=== PATIENT | male | born 1965 | race Caucasian/White ===

== ENCOUNTER → 2017-12-01 07:05 | Outpatient (CLI) | payer MEDICAID, SELFPAY ==
--- NOTE | 2017-12-01 07:10 | NM_ITS ---
History and Indications: Hypertension, chest pain and shortness of breath Procedure: Patient received a 0.4 mg of Lexiscan, resting heart rate was 58 bpm resting blood pressure 142/82, with Lexiscan maximum heart rate achieved was 83 bpm which is less than 85% of the maximum predicted heart rate and a blood pressure was 130/84With Lexiscan patient complained of shortness of breath. Electrocardiogram: Resting electrocardiogram showed sinus rhythm, with Lexiscan there is less than 1.[address] segment depression noted from the baseline EKG. The EKG portion of the Lexiscan Myoview is nondiagnostic. Cardiac stress and resting SPECT images: Cardiac stress and resting SPECT images were obtained using technetium 99 Myoview 31.3 mCi at stress and the 10.9 mCi at rest gated SPECT further analysis of segmental wall motion and calculation of the ejection fraction also done. Cardiac stress and rest SPECT images show uniform myocardial activity without any segmental perfusion abnormality, computer derived ejection fraction of 55% with no obvious regional wall motion abnormality, right ventricle is normal size and contractility. Conclusion: 1. The EKG portion of the Lexiscan Myoview is nondiagnostic. 2. No obvious scintigraphic evidence of reversible ischemia seen, computer derived ejection fraction is 55% with no obvious regional wall motion abnormality, right ventricle is normal size and contractility. 3. Normal Lexiscan Myoview study.
--- NOTE | 2017-12-01 07:10 | CA_ITS ---
PROCEDURE: 2-D M-mode and color Doppler study INDICATIONS FOR THE TEST: Chest painX COPD Heart Murmur Tobacco Smoking Palpitations FatigueX Syncope Edema HypertensionXDiabetes Mellitus Rheumatic Fever SOB DOEXObesity HyperlipidemiaX Family History HD Additional History CAD,KEVIN PATIENT INFORMATION HEIGHT:68 WEIGHT:211 GENDER: Male B/P:126/80 2-D/M-MODE INTERPRETATION: 2-D MEASUREMENTS OBSERVED VALUES IN CMS Right Ventricular Dimension (RVDd) 3.2 Interventricular Septum (Thickness)(IVsd) 1.2 Left Ventricular Internal Dimensions(LVIDd) 4.7 Left Ventricular Posterior Wall (Thickness)(LVPWd) .9 Aortic Root 3.0 Aortic Cusp Separation 2.0 Left Atrial Dimensions (LAD) 3.4 2D 1. Left atrium is qualitatively mildly enlarged, left ventricle is normal size, there is no concentric left ventricular hypertrophy, visually estimated ejection fraction of 55% with no obvious regional wall motion abnormality. 2. Right atrium and right ventricle are mildly enlarged with normal contractility. 3. The aortic valve is minimally thickened and fibrosed. 4. The mitral valve appears to be mildly myxomatous with mild prolapse 5. The tricuspid valve is structurally normal. 6. The pulmonic valve is poorly visualized 7. No significant pericardial effusion noted. DOPPLER INTERROGATION: Doppler interrogation of the aortic, mitral and tricuspid valvular presence of mild mitral and tricuspid regurgitation, tricuspid and jet velocity is insufficient for calculation of the right ventricular systolic pressure, grade 1 diastolic dysfunction seen with tissue Doppler evidence of raised left atrial pressure. CONCLUSION: 1. Mildly enlarged left atrium, normal left ventricular size, preserved left ventricular systolic function visually estimated ejection fraction 55% with no obvious regional wall motion abnormality, grade 1 diastolic dysfunction seen with tissue Doppler evidence of raised left atrial pressure. 2. Mildly enlarged right ventricle with normal contractility. 3. Mild mitral and tricuspid regurgitation. 4. No significant pericardial effusion noted.
--- NOTE | 2017-12-01 09:05 | HMH.ITSHM ---
losartan carvedilol water pill
== END ==
PROVIDERS: PCP Emergency Medicine; Visit Provider Internal Medicine
DX: I20.9 Angina pectoris, unspecified (principal); R06.09 Other forms of dyspnea
CPT/HCPCS: 78452; 93017; 93306; A9502; J2785

== ENCOUNTER → 2018-01-15 10:36 | Outpatient (CLI) | payer MEDICAID, SELFPAY ==
[2018-01-15 12:25] LABS: Alanine Aminotransferase 34 U/L (12-78); Albumin Level 3.7 gm/dL (3.4-5.0); Alkaline Phosphatase 88 U/L (46-116); Anion Gap 8.8 mEq/L (5-15); Aspartate Amino Transferase 22 U/L (15-37); Bilirubin,Direct 0.1 mg/dL (0.0-0.2); Bilirubin,Indirect 0.5 mg/dL (0.0-0.9); Bilirubin,Total 0.6 mg/dL (0.2-1.0); Blood Urea Nitrogen 14 mg/dL (7-18); Calcium 8.7 mg/dL (8.5-10.1); Carbon Dioxide 32 mmol/L (21.0-32.0); Chloride 107 mmol/L (98-107); Chol/HDL Ratio 3.4 (1-3.5); Cholesterol 110 mg/dL (140-200); Creatinine,Serum 1.03 mg/dL (0.70-1.30); Estimated Glomerular Filt Rate 76 ml/min (>60); GFR (African American) 91 ML/MIN (>60); Glucose 114 mg/dL (74-106); HDL Cholesterol 32 mg/dL (27-67); LDL Cholesterol 62 mg/dL (0-130); Potassium 4.8 mmoL/L (3.5-5.1); Sodium 143 mmol/L (136-145); Triglycerides 79 mg/dL (30-200); VLDL Cholesterol 16 mg/dL (0-40)
== END ==
PROVIDERS: PCP Emergency Medicine; Visit Provider Urology
DX: I25.118 Atherosclerotic heart disease of native coronary artery with other forms of angina pectoris (principal); Z95.5 Presence of coronary angioplasty implant and graft
CPT/HCPCS: 36415; 80048; 80061; 80076

== ENCOUNTER → 2018-10-10 07:22 | Outpatient (CLI) | payer MEDICAID, SELFPAY ==
[2018-10-10 13:58] LABS: Basophils # 0.1 K/mm3 (0-0.2); Basophils % 1.2 % (0.1-2.0); Eosinophils # 0.3 K/mm3 (0.0-0.4); Eosinophils % 3.3 % (0.1-12.0); Hematocrit 50.1 % (42.0-52.0); Hemoglobin 17.3 g/dL (14.1-18.0); Lymphocytes # 2.3 K/mm3 (0.7-4.5); Lymphocytes % 30.2 % (10-50); Mean Corpuscular HGB Conc 34.6 g/dL (31.8-35.4); Mean Corpuscular Hemoglobin 31.2 pg (27.0-31.2); Mean Platelet Volume 9.7 fl (7.4-10.4); Monocytes # 0.4 K/mm3 (0.1-1.0); Monocytes % 5.9 % (1.7-9.3); Neutrophils # 4.5 K/mm3 (1.8-7.8); Neutrophils % 59.4 % (37.0-80.0); Platelet Count 181 K/mm3 (142-424); Red Blood Count 5.56 M/mm3 (4.60-6.20); Red Cell Distribution Width 13.9 % (11.5-17.5); White Blood Count 7.5 K/mm3 (4.8-10.8)
[2018-10-10 14:58] LABS: Alanine Aminotransferase 35 U/L (12-78); Albumin Level 3.7 gm/dL (3.4-5.0); Alkaline Phosphatase 96 U/L (46-116); Anion Gap 11.8 mEq/L (5-15); Aspartate Amino Transferase 19 U/L (15-37); Bilirubin,Direct 0.2 mg/dL (0.0-0.2); Bilirubin,Indirect 0.3 mg/dL (0.0-0.9); Bilirubin,Total 0.5 mg/dL (0.2-1.0); Blood Urea Nitrogen 20 mg/dL (7-18); Calcium 9.2 mg/dL (8.5-10.1); Carbon Dioxide 29 mmol/L (21.0-32.0); Chloride 106 mmol/L (98-107); Chol/HDL Ratio 3.2 (1-3.5); Cholesterol 87 mg/dL (140-200); Creatinine,Serum 1.09 mg/dL (0.70-1.30); Estimated Glomerular Filt Rate 70 ml/min (>60); Free T4 (Free Thyroxine) 0.89 ng/dl (0.76-1.46); GFR (African American) 85 ML/MIN (>60); Glucose 141 mg/dL (74-106); HDL Cholesterol 27 mg/dL (27-67); LDL Cholesterol 45 mg/dL (0-130); Potassium 3.8 mmoL/L (3.5-5.1); Sodium 143 mmol/L (136-145); Total Protein,Serum 6.9 gm/dL (6.4-8.2); Triglycerides 77 mg/dL (30-200); VLDL Cholesterol 15 mg/dL (0-40)
== END ==
PROVIDERS: PCP Emergency Medicine; Visit Provider Nurse Practitioner Family
DX: R06.09 Other forms of dyspnea (principal); I11.9 Hypertensive heart disease without heart failure; I25.10 Atherosclerotic heart disease of native coronary artery without angina pectoris; I51.89 Other ill-defined heart diseases; R53.83 Other fatigue; G47.33 Obstructive sleep apnea (adult) (pediatric); Z95.5 Presence of coronary angioplasty implant and graft
CPT/HCPCS: 36415; 80048; 80061; 80076; 84439; 84443; 85025

== ENCOUNTER → 2019-09-16 08:13 | Outpatient (CLI) | payer OTHER, SELFPAY ==
[2019-09-16 14:02] LABS: Alanine Aminotransferase 31 U/L (12-78); Albumin Level 4.2 g/dl (3.5-5.0); Alkaline Phosphatase 98 U/L (38-126); Aspartate Amino Transferase 29 U/L (17-59); Bilirubin,Indirect 0.5 mg/dL (0.0-0.9); Bilirubin,Total 0.5 mg/dl (0.2-1.3); Bilirubin,Unconjugated 0.6 mg/dL (0.0-1.1); Total Protein,Serum 7.1 g/dl (6.3-8.2)
[2019-09-16 14:06] LABS: NT Pro Brain Natriuretic Pep. 30.9 pg/mL (0-125)
== END ==
PROVIDERS: PCP Nurse Practitioner; Visit Provider Internal Medicine Cardiovascular Disease
DX: I25.10 Atherosclerotic heart disease of native coronary artery without angina pectoris (principal); I50.30 Unspecified diastolic (congestive) heart failure; R06.00 Dyspnea, unspecified; R59.0 Localized enlarged lymph nodes; R60.9 Edema, unspecified; E78.5 Hyperlipidemia, unspecified; Z95.5 Presence of coronary angioplasty implant and graft
CPT/HCPCS: 36415; 80076; 83880

== ENCOUNTER → 2019-10-07 07:45 | Outpatient (CLI) | payer OTHER, SELFPAY ==
--- NOTE | 2019-10-07 07:45 | US_ITS ---
PROCEDURE: US ABDOMEN COMPLETE CLINICAL INDICATION: positive bowel sounds Pain with bloating COMPARISON: ABD US ABD(COMPLETE-MULTI ORGANS from 09/16/2016 FINDINGS: PANCREAS: Unremarkable. No obvious mass or abnormal fluid collection. No ductal dilatation LIVER: No focal liver lesions demonstrated. Homogeneous echogenicity. No intrahepatic biliary ductal dilatation evident. There is appropriate direction of blood flow within a non dilated portal vein RIGHT KIDNEY: Unremarkable. Normal size and echogenicity. No hydronephrosis LEFT KIDNEY: Unremarkable. Normal size and echogenicity. No hydronephrosis GALLBLADDER: There has been a prior cholecystectomy. Common bile duct is 7 mm slightly prominent but may be due to the previous cholecystectomy. AORTA: No evidence of aneurysmal dilatation. SPLEEN: Unremarkable. Normal size and echogenicity ASCITES: None demonstrated. IMPRESSION: Prior cholecystectomy otherwise negative Dictated by: Lupillo Lujan MD 10/07/2019 14:15 Electronically signed by Lupillo Lujan MD in [place] 10/07/2019 14:15
--- NOTE | 2019-10-07 07:45 | XR_ITS ---
PROCEDURE: XR CHEST 2V CLINICAL HISTORY: sob Shortness of breath COMPARISON: CXR1 CHEST-PORTABLE from 01/16/2017 CXR CHEST(2 VIEWS-NOT PORTABLE) from 06/29/2017 CXR1VP XR chest portable from 11/13/2017 FINDINGS: The cardiomediastinal silhouette and pulmonary vascularity are within normal limits. Minimal linear density noted in the left midlung which may be due to some mild fibrotic change. The remaining lungs are clear. No acute bony abnormalities. IMPRESSION: No change with no acute finding Dictated by: Lupillo Lujan MD 10/07/2019 10:02 Electronically signed by Lupillo Lujan MD in [place] 10/07/2019 10:02
== END ==
PROVIDERS: PCP Nurse Practitioner; Visit Provider Internal Medicine Cardiovascular Disease
DX: R06.00 Dyspnea, unspecified (principal); E78.5 Hyperlipidemia, unspecified; I11.9 Hypertensive heart disease without heart failure; I25.10 Atherosclerotic heart disease of native coronary artery without angina pectoris; R59.0 Localized enlarged lymph nodes; R60.9 Edema, unspecified; Z95.5 Presence of coronary angioplasty implant and graft
CPT/HCPCS: 71046; 76700; 93306

== ENCOUNTER → 2020-12-08 08:33 | Outpatient (CLI) | payer OTHER, SELFPAY ==
[2020-12-08 14:27] LABS: Alanine Aminotransferase 33 U/L (12-78); Albumin Level 4.2 g/dl (3.5-5.0); Alkaline Phosphatase 96 U/L (38-126); Aspartate Amino Transferase 32 U/L (17-59); Bilirubin,Direct 0.5 mg/dl (0.0-0.4); Bilirubin,Indirect 0.2 mg/dL (0.0-0.9); Bilirubin,Total 0.7 mg/dl (0.2-1.3); Bilirubin,Unconjugated 0.2 mg/dL (0.0-1.1); Chol/HDL Ratio 4.1 (1-3.5); Cholesterol 103 mg/dl (140-200); HDL Cholesterol 25 mg/dl (40-60); Total Protein,Serum 6.7 g/dl (6.3-8.2); Triglycerides 151 mg/dl (30-150); VLDL Cholesterol 30 mg/dL (0-40)
[2020-12-08 14:40] LABS: Direct LDL Cholesterol 45.03 mg/dL (100-129)
== END ==
PROVIDERS: Visit Provider Internal Medicine Cardiovascular Disease
DX: R06.00 Dyspnea, unspecified (principal); I25.10 Atherosclerotic heart disease of native coronary artery without angina pectoris; I11.9 Hypertensive heart disease without heart failure; E78.5 Hyperlipidemia, unspecified; R59.0 Localized enlarged lymph nodes; R60.9 Edema, unspecified; Z95.5 Presence of coronary angioplasty implant and graft
CPT/HCPCS: 36415; 80061; 80076

== ENCOUNTER → 2022-06-03 09:52 | Outpatient (CLI) | payer OTHER, SELFPAY ==
[2022-06-03 10:37] LABS: Alanine Aminotransferase 33 U/L (12-78); Alkaline Phosphatase 94 U/L (38-126); Aspartate Amino Transferase 36 U/L (17-59); Bilirubin,Direct 0.1 mg/dl (0.0-0.4); Bilirubin,Indirect 0.7 mg/dL (0.0-0.9); Bilirubin,Total 0.8 mg/dl (0.2-1.3); Bilirubin,Unconjugated 0.7 mg/dL (0.0-1.1)
[2022-06-03 10:38] LABS: Albumin Level 4.3 g/dl (3.5-5.0); Chol/HDL Ratio 4.6 (1-3.5); Cholesterol 120 mg/dl (140-200); HDL Cholesterol 26 mg/dl (40-60); Total Protein,Serum 6.8 g/dl (6.3-8.2); Triglycerides 168 mg/dl (30-150); VLDL Cholesterol 34 mg/dL (0-40)
[2022-06-03 10:49] LABS: Direct LDL Cholesterol 50.29 mg/dL (100-129)
== END ==
PROVIDERS: PCP Nurse Practitioner; Visit Provider Internal Medicine Cardiovascular Disease
DX: I25.10 Atherosclerotic heart disease of native coronary artery without angina pectoris (principal); I11.9 Hypertensive heart disease without heart failure
CPT/HCPCS: 36415; 80061; 80076

== ENCOUNTER → 2022-07-08 11:43 | Outpatient (CLI) | payer OTHER, SELFPAY ==
--- NOTE | 2022-07-08 11:53 | XR_ITS ---
FINAL REPORT TECHNIQUE: 2 views CLINICAL HISTORY: .PAIN FINDINGS: THORACIC SPINE Two views were obtained. There is no acute fracture. There is no malalignment. There are mild degenerative changes with osteophytes. There is no soft tissue abnormality. IMPRESSION: No acute bony abnormality. Reviewed, Interpreted and Dictated by Abdi Neville III, MD Transcribed by Gina Sweet Authenticated and [facility]
--- NOTE | 2022-07-08 11:53 | XR_ITS ---
FINAL REPORT CLINICAL HISTORY: .NECK PAIN FINDINGS: CERVICAL SPINE Three views were obtained. There is no acute fracture. There is no malalignment. There are mild and moderate degenerative changes with osteophytes, greatest at C6-7. There is a calcification posterior to C4 and C5. IMPRESSION: Mild and moderate degenerative changes with osteophytes, greatest at C6-7. Reviewed, Interpreted and Dictated by Abdi Neville III, MD Transcribed by Gina Sweet Authenticated and [facility]
== END ==
PROVIDERS: PCP Nurse Practitioner; Visit Provider Nurse Practitioner
DX: M54.2 Cervicalgia (principal); M54.50 Low back pain, unspecified
CPT/HCPCS: 72040; 72070

== ENCOUNTER 2022-08-10 16:00 | Outpatient (RCR) | payer OTHER, SELFPAY | END 2022-09-20 13:08 | disposition home or self-care (01) | LOC: PT 16:00 | PROVIDERS: PCP Nurse Practitioner; Visit Provider Nurse Practitioner | DX: M54.2 Cervicalgia (principal) | CPT/HCPCS: 97010; 97012; 97014; 97110; 97140; 97163; G0283 ==

== ENCOUNTER → 2022-12-15 09:24 | Outpatient (CLI) | payer OTHER, SELFPAY ==
[2022-12-15 09:50] LABS: Basophils # 0.1 K/mm3 (0-0.2); Basophils % 1.1 % (0.1-2.0); Eosinophils # 0.3 K/mm3 (0.0-0.4); Eosinophils % 4.7 % (0.1-12.0); Hematocrit 50.7 % (42.0-52.0); Hemoglobin 17.2 g/dL (14.1-18.0); Lymphocytes # 2.1 K/mm3 (0.7-4.5); Mean Corpuscular HGB Conc 33.8 g/dL (31.8-35.4); Mean Corpuscular Hemoglobin 31.4 pg (27.0-31.2); Mean Corpuscular Volume 92.7 fl (80-94); Mean Platelet Volume 9.2 fl (7.4-10.4); Monocytes # 0.4 K/mm3 (0.1-1.0); Monocytes % 6.2 % (1.7-9.3); Neutrophils # 3.9 K/mm3 (1.8-7.8); Neutrophils % 57.1 % (37.0-80.0); Platelet Count 143 K/mm3 (142-424); Red Blood Count 5.47 M/mm3 (4.60-6.20); Red Cell Distribution Width 14.1 % (11.5-17.5); White Blood Count 6.8 K/mm3 (4.8-10.8)
[2022-12-15 10:08] LABS: Alanine Aminotransferase 40 U/L (12-78); Albumin Level 4.2 g/dl (3.5-5.0); Alkaline Phosphatase 98 U/L (38-126); Anion Gap 17.4 mEq/L (5-15); Aspartate Amino Transferase 37 U/L (17-59); Bilirubin,Indirect 0.9 mg/dL (0.0-0.9); Bilirubin,Total 0.9 mg/dl (0.2-1.3); Blood Urea Nitrogen 19 mg/dl (9-20); Calcium 9.2 mg/dl (8.4-10.2); Carbon Dioxide 29 mmol/L (22.0-30.0); Chloride 99 mmol/L (98-107); Chol/HDL Ratio 3.8 (1-3.5); Cholesterol 99 mg/dl (140-200); Estimated Glomerular Filt Rate 77 ml/min (>60); GFR (African American) 93 ML/MIN (>60); Glucose 141 mg/dl (74-100); HDL Cholesterol 26 mg/dl (40-60); Magnesium 1.9 mg/dl (1.6-2.3); Potassium 4.4 mmoL/L (3.5-5.1); Sodium 141 mmol/L (136-145); Total Protein,Serum 6.8 g/dl (6.3-8.2); Triglycerides 189 mg/dl (30-150); VLDL Cholesterol 38 mg/dL (0-40)
[2022-12-15 10:18] LABS: NT Pro Brain Natriuretic Pep. 45.9 pg/mL (0-125)
[2022-12-15 10:19] LABS: Direct LDL Cholesterol 44.27 mg/dL (100-129)
[2022-12-15 10:24] LABS: Free T4 (Free Thyroxine) 0.76 ng/dl (0.78-2.19)
[2022-12-15 10:39] LABS: Thyroid Stimulating Hormone 2.03 uIU/mL (0.465-4.68)
== END ==
PROVIDERS: PCP Nurse Practitioner; Visit Provider Physician Assistant
DX: I25.10 Atherosclerotic heart disease of native coronary artery without angina pectoris (principal); I11.9 Hypertensive heart disease without heart failure; E78.2 Mixed hyperlipidemia; G47.33 Obstructive sleep apnea (adult) (pediatric); Z95.5 Presence of coronary angioplasty implant and graft
CPT/HCPCS: 36415; 80048; 80061; 80076; 83735; 83880; 84439; 84443; 85025

== ENCOUNTER 2023-07-28 14:49 | Outpatient (CLI) | payer OTHER, SELFPAY ==
--- NOTE | 2023-07-28 14:50 | CA_ITS ---
APPROVED REPORT EXAM: Comprehensive 2D, Doppler, and color-flow Echocardiogram Fire Alarm Technician: Rosita Jernigan, RCS, RVS Ht: 5 ft 6 in Wt: 224lbs BSA: 2.10 BP: 138/74 mmHg Indications: CAD, Diastolic dysfunction, HTN ,SOA, MEDEL, KEVIN, HLD 2D Dimensions Aortic Root 3.30 cm LA Volume 57.30 mL Left Atrium 2.91 cm LA Volume Index 27.30 mL/m2 (M/F) 16-34 RVID Base (AP4) 2.68 cm (M/F) 2.5-4.1 EF AP4 49.90 % LVOT 1.85 cm (M/F) 1.5-2.5 GL Strain -17.4 % M-Mode Dimensions RVDd 2.58 cm (0.9-2.6) LVDd 4.38 cm (3.5-5.7) Ao Diam 3.54 cm (2.0-3.7) LVDs 2.91 cm (3.5-5.7) IVSd 1.29 cm (0.6-1.1) PWd 1.08 cm (0.6-1.1) EF (Teich) 62.60% EPSs 0.32 cm FS 33.60% EDV (Teich) 86.80 mL TAPSE 2.62 (<1.7) ESV (Teich) 32.50 mL LV Diastology E Decel Time 358 (160-240 msec) E/A Ratio 0.96 MED E' 6.6 (>= 7 cm/sec) MED A' 10.40 cm/s E'/MED E' Ratio 10.00 (<= 14) LAT E' 5.6 (>= 10 cm/sec) LAT A' 9.20 cm/s E/LAT E' Ratio 11.79 (<= 14) Aortic Valve LVOT Max 88.0 (70-110 cm/s) TASIA Index 0.88 cm2/m2 LVOT VTI 14.54 cm AoV Peak Valentin. 117.0 (50-130 cm/s) AO Mean GR. 2.80 (<5 mmHg) AO VTI 21.2 (18-25 cm) TASIA (VTI) 1.85 (2.5-4.5 cm2) Mitral Valve MV E Max Valentin. 66.0 (40-130 cm/s) MV A Velocity 69.0 (40-130 cm/s) E/A Ratio 0.96 MV Decel. Time 358 (160-240 ms) MV Mean Gr. 0.90 (<2mmHg) Tricuspid Valve TR P. Velocity 165.00 cm/s RAP Estimate 10.00 mmHg RVSP 20.90 mmHg Left Ventricle The left ventricle is normal size. The left ventricular systolic function is normal. The left ventricular ejection fraction is within the normal range. There is normal left ventricular wall thickness. There is normal LV segmental wall motion. The left ventricular diastolic function is normal. LVEF is 60%. Right Ventricle The right ventricle is normal size. The right ventricular systolic function is normal. Atria The left atrium size is normal. The right atrium size is normal. There is no Doppler evidence of interatrial shunt. Aortic Valve The aortic valve is normal in structure. There is no aortic valvular stenosis. No aortic regurgitation is present. Mitral Valve The mitral valve is normal in structure. No evidence of mitral valve stenosis. There is no mitral valve regurgitation noted. Tricuspid Valve The tricuspid valve leaflets are thin and pliable. Trace tricuspid regurgitation. There is insufficient TR jet to estimate RVSP. Pulmonic Valve The pulmonary valve is normal in structure. Trace pulmonic regurgitation. Great Vessels The aortic root is normal in size. The ascending aorta is normal in size. IVC is normal in size and collapses >50% with inspiration. Pericardium There is no pericardial effusion. Other Information Study Quality: Adequate Conclusion Normal biventricular systolic function. No significant valvular stenosis or regurgitation. Electronically signed by : Eleonora Mckeon MD 07/30/2023 17:15:13
== END 2023-07-28 23:59 ==
LOC: RT 14:50
PROVIDERS: PCP Nurse Practitioner; Visit Provider Internal Medicine
DX: R06.02 Shortness of breath (principal); I11.9 Hypertensive heart disease without heart failure; I25.10 Atherosclerotic heart disease of native coronary artery without angina pectoris; Z95.5 Presence of coronary angioplasty implant and graft
CPT/HCPCS: 93306

== ENCOUNTER 2023-08-04 08:46 | Outpatient (CLI) | payer OTHER, SELFPAY ==
[2023-08-04] VITALS (7 sets, daily range): BP systolic 117–133; BP diastolic 70–91; PULSE 58–90; RESP 16–18; TEMP 36.6; O2SAT 94–100; BMI 35.5
[2023-08-04 09:23] LABS: POC Glucose,Bedside 153 (70-110)
[2023-08-04 09:36] LABS: Chloride 106 mmol/L (98-107); Sodium 140 mmol/L (136-145)
[2023-08-04 09:37] LABS: Potassium 3.8 mmoL/L (3.5-5.1)
[2023-08-04 09:40] LABS: Anion Gap 9.8 mEq/L (5-15); Blood Urea Nitrogen 21 mg/dl (9-20); Calcium 8.8 mg/dl (8.4-10.2); Carbon Dioxide 28 mmol/L (22.0-30.0); Creatinine Clearance Estimated 140 mL/min (50-200); Estimated Glomerular Filt Rate 99 ml/min (>60); GFR (African American) 120 ML/MIN (>60); Glucose 152 mg/dl (74-100)
[2023-08-04] MEDS: IVABRADINE HCL 7.5MG TABLET 15 MG PO (10:04)
[2023-08-04] MEDS: METOPROLOL TARTRATE 25MG TABLET 75 MG (10:04)
[2023-08-04] MEDS: METOPROLOL TARTRATE 5MG/5ML VIAL *IVABRADINE+METOPROLOL REGIMINE 5 MG IV ×2 (11:05→11:20)
[2023-08-04] MEDS: METOPROLOL TARTRATE 50MG TABLET *IVABRADINE+METOPROLOL REGIMINE 75 MG PO (11:08)
[2023-08-04] MEDS: 0.9 % SODIUM CHLORIDE 50 ML VIAL IV (12:35)
[2023-08-04] MEDS: IOPAMIDOL-370 (76%);100ML BOTTLE 85 ML IV (12:35)
[2023-08-04] MEDS: SODIUM CHLORIDE 0.9% 10ML SYR (RAD ONLY) 10 ML IV (12:35)
[2023-08-04] MEDS: NITROGLYCERIN 0.4MG SL TABLET 0.800000000000000044 MG SL (13:25)
== END 2023-08-04 13:20 | disposition home or self-care (01) ==
PROVIDERS: PCP Nurse Practitioner; Visit Provider Internal Medicine
DX: R06.00 Dyspnea, unspecified (principal); I25.10 Atherosclerotic heart disease of native coronary artery without angina pectoris; E78.5 Hyperlipidemia, unspecified; I11.9 Hypertensive heart disease without heart failure; G47.33 Obstructive sleep apnea (adult) (pediatric); Z95.5 Presence of coronary angioplasty implant and graft
CPT/HCPCS: 75571; 75574; 80048; 82962; Q9967

== ENCOUNTER 2023-11-03 10:49 | Outpatient (CLI) | payer OTHER, SELFPAY ==
--- NOTE | 2023-11-03 10:52 | CT_ITS ---
FINAL REPORT TECHNIQUE: Thin section axial images were obtained from the lung apices to the upper abdomen by computed tomography. Reformatted images were obtained and reviewed. This study was performed with techniques to keep radiation doses al low as reasonably achievable (ALARA). Individualized dose reduction techniques using automated exposure control or adjustment of mA and/or kV according to the patient's size were employed. CLINICAL HISTORY: H/O TOBACCO USE FORMER SMOKER QUIT 15 YEARS AGO 1PPD X 30 YEARS WHEN SMOKIMG COMPARISON: None FINDINGS: CHEST CT LOW DOSE 59-year-old male, former smoker, quit 15 years ago, [id number] history. CTDI vol (mGy): 2.9 DLP (mGy-cm): 98.47 There is no axillary adenopathy. There is no mediastinal or hilar mass or adenopathy. The heart is normal in size. Mild coronary artery calcifications are present. There is no pericardial or pleural effusion. There is mild emphysema and mild pulmonary scarring. Lung window images demonstrate multiple small right lower lobe nodules. There is a 4 mm lateral right lower lobe nodule best seen in image #42. There is a 3 mm right lower lobe nodule, best seen in image #43. There are several other small nodules present. There are calcified granulomas present in the right upper lobe.. Limited images of the upper abdomen reveal a questionable stone in the region of the neck of the gallbladder. IMPRESSION: Lung-RADS category 2. Recommend 12 month follow up low dose chest CT. Questionable stone in the region of the neck of the gallbladder. Reviewed, Interpreted and Dictated by Abdi Neville III, MD Transcribed by Blaire Gallagher Authenticated and [facility]
== END 2023-11-03 23:59 ==
LOC: RAD 10:49
PROVIDERS: PCP Nurse Practitioner; Visit Provider Nurse Practitioner
DX: Z87.891 Personal history of nicotine dependence (principal); Z12.2 Encounter for screening for malignant neoplasm of respiratory organs
CPT/HCPCS: 71271

== ENCOUNTER 2025-01-16 09:26 | Outpatient (CLI) | payer OTHER, SELFPAY ==
--- OUTSIDE RECORDS SUMMARY | 2025-01-16 09:31 | XMS_ITS | Clinical Summary ---
Author Organization Healthcare Address [facility] [place] [address] Care Team Providers Care Sponsorship Manager Name Role Phone Murali Halina MARCO ANTONIO Primary Care Provider [phone] Social History Tobacco Use Types Packs/Day Years Used Date Smoking Tobacco: Never Assessed Sex and Gender Information Value Date Recorded Sex Assigned at Not on file Legal Sex Male 8:31 PM EDT Gender Identity Not on file Sexual Orientation Not on file Plan of Treatment Health Maintenance Due Date Last Done Comments [facility]-Depression Screening 1964 [facility]-Infant/Child/Adol SDOH Screenings 1964 [facility]- SDOH Screenings 1982 [facility]-Adult SDOH Screenings 1982 [facility]-DTaP,Tdap,and Td Vaccine s (1 - Tdap) 1983 CT Colonography 2009 Colonoscopy 2009 FIT-DNA 2009 FIT 2009 FOBT 2009 Sigmoidoscopy 2009 [facility]-Colorectal Cancer Screening 2009 [facility]-Pneumococcal Vaccine: 50 + Years (1 of 1 - PCV) 2014 [facility]-Zoster Vaccines (1 of 2) 2014 [id number] Vaccine (4 - 2023- season) 2024 01/07/2022, 05/27/2021, 10/01/2020 [facility]-Influenza Vaccine (Seas[place] n Ended) 2025 [facility]-RSV Vaccine: 60+ Years o r (1 - 1-dose 75+ series) 2039 HPV Vaccines Aged Out No longer eligi ble based on patient's age to complete this topic [facility]-HIB Vaccines Aged Out No longer e ligible based on patient's age to complete this topic [facility]-Hepatitis A Vaccines Aged Out No longer eligible based on patient's age to complete this topic [facility]-IPV Vaccines Aged Out No longer e ligible based on patient's age to complete this topic [facility]-Rotavirus Vaccines Aged Out No lo nger eligible based on patient's age to complete this topic Insurance [employer] Care Teams Sponsorship Manager Relationship Specialty Start Date End Date Halina Carrion APRN PCP - General 12/04/20
[2025-01-16 09:52] LABS: Basophils % 0.1 % (0.1-2.0); Eosinophils % 0.1 % (0.1-12.0); Hematocrit 46.7 % (42.0-52.0); Hemoglobin 15.8 g/dL (14.1-18.0); Immature Granulocytes # 0.08 10^3uL; Immature Granulocytes % 0.7 %; Lymphocytes # 1.5 K/mm3 (0.7-4.5); Lymphocytes % 12.7 % (10-50); Mean Corpuscular HGB Conc 33.8 g/dL (31.8-35.4); Mean Corpuscular Hemoglobin 30.7 pg (27.0-31.2); Mean Corpuscular Volume 90.7 fl (80-94); Mean Platelet Volume 10.9 fl (7.4-10.4); Monocytes # 0.7 K/mm3 (0.1-1.0); Monocytes % 5.6 % (1.7-9.3); Neutrophils # 9.7 K/mm3 (1.8-7.8); Neutrophils % 80.8 % (37.0-80.0); Nucleated Red Blood Cells # 0 10^3/uL; Nucleated Red Blood Cells % 0 %; Platelet Count 141 K/mm3 (142-424); Red Blood Count 5.15 M/mm3 (4.60-6.20); Red Cell Distribution Width 13.6 % (11.5-17.5); Red Cell Distribution Width-SD 45.4 fL
[2025-01-16 10:36] LABS: Chloride 101 mmol/L (98-107)
[2025-01-16 10:37] LABS: Albumin Level 4.3 g/dl (3.5-5.0); Potassium 4.3 mmoL/L (3.5-5.1); Sodium 143 mmol/L (136-145)
[2025-01-16 10:40] LABS: Alanine Aminotransferase 26 U/L (12-78); Alkaline Phosphatase 73 U/L (38-126); Anion Gap 15.3 mEq/L (5-15); Aspartate Amino Transferase 24 U/L (17-59); Bilirubin,Direct 0.1 mg/dl (0.0-0.4); Bilirubin,Indirect 0.4 mg/dL (0.0-0.9); Bilirubin,Total 0.5 mg/dl (0.2-1.3); Bilirubin,Unconjugated 0.4 mg/dL (0.0-1.1); Blood Urea Nitrogen 24 mg/dl (9-20); Calcium 9.4 mg/dl (8.4-10.2); Carbon Dioxide 31 mmol/L (22.0-30.0); Cholesterol 107 mg/dl (140-200); Estimated Glomerular Filt Rate 86 ml/min (>60); GFR (African American) 104 ML/MIN (>60); Glucose 123 mg/dl (74-100); Total Protein,Serum 6.6 g/dl (6.3-8.2); Triglycerides 97 mg/dl (30-150); VLDL Cholesterol 19 mg/dL (0-40)
[2025-01-16 10:41] LABS: Chol/HDL Ratio 3.5 (1-3.5); HDL Cholesterol 31 mg/dl (40-60); Magnesium 2.2 mg/dl (1.6-2.3)
[2025-01-16 10:52] LABS: Direct LDL Cholesterol 41.95 mg/dL (100-129)
[2025-01-16 10:58] LABS: Free T4 (Free Thyroxine) 0.77 ng/dl (0.78-2.19)
[2025-01-16 11:12] LABS: Thyroid Stimulating Hormone 0.89 uIU/mL (0.465-4.68)
== END 2025-01-16 23:59 | disposition home or self-care (01) ==
LOC: LAB 09:27
PROVIDERS: PCP Nurse Practitioner; Visit Provider Internal Medicine
DX: G47.33 Obstructive sleep apnea (adult) (pediatric) (principal); E78.5 Hyperlipidemia, unspecified; I11.9 Hypertensive heart disease without heart failure; I25.10 Atherosclerotic heart disease of native coronary artery without angina pectoris; Z95.5 Presence of coronary angioplasty implant and graft
CPT/HCPCS: 36415; 80048; 80061; 80076; 83735; 84439; 84443; 85025